=== PATIENT | male | born 1960 | race Asian ===

== ENCOUNTER 2019-07-01 07:14 | Emergency (ER) | payer OTHER ==
[~2019-07-01] VITALS: Ht 167.6 cm; Wt 72.6 kg
[2019-07-01 07:14] VITALS: TEMP 97.7
[2019-07-01 07:41] LABS: PLATELET COUNT 282 K/uL (142-355)
[2019-07-01 07:47] LABS: POTASSIUM 3.9 mmol/L (3.6-5.2)
[2019-07-01 09:30] VITALS: BP 172/99
== END 2019-07-01 09:57 | disposition short-term general hospital (02) ==
LOC: ED 07:14
PROVIDERS: Emergency Medicine
DX: I50.9 Heart failure, unspecified (principal); R06.00 Dyspnea, unspecified; J96.90 Respiratory failure, unspecified, unspecified whether with hypoxia or hypercapnia; R00.0 Tachycardia, unspecified; F17.210 Nicotine dependence, cigarettes, uncomplicated
CPT/HCPCS: 36415; 36600; 80053; 82550; 82553; 82805; 83036; 83880; 84484; 85027; 85379; 87502; 94660; 94664; 94760; 96372; 96374; 96375; 99285; J1650; J1940; J2930

== ENCOUNTER 2019-07-01 10:02 | Outpatient (CLI) | payer OTHER | END 2019-07-01 11:19 | disposition short-term general hospital (02) | LOC: AMB 10:02 | DX: I50.9 Heart failure, unspecified (principal); J96.90 Respiratory failure, unspecified, unspecified whether with hypoxia or hypercapnia | CPT/HCPCS: A0425; A0427 ==